=== PATIENT | female | born 2005 | race Caucasian/White ===

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

== ENCOUNTER 2024-07-19 12:59 | Emergency (ER) | payer MEDICAID ==
[~2024-07-19] VITALS: Ht 147.3 cm; Wt 67.5 kg
[2024-07-19 13:00] VITALS: TEMP 100.3
--- NOTE | 2024-07-19 14:45 | Physician Documentation ---
History of Present Illness ~ Chief Complaint: Flu Symptoms Stated Complaint: COUGH/SOB/ASTHMA Time Seen by MD: 14:19 Primary Medical Doctor: Brian still Mode of Arrival: Ambulatory HPI This is a 19-year-old female with a history of Down's syndrome who was status post Cardiothoracic surgery due to congenital anomaly. She also has a history of asthma. Her mother accompanies her, and notes that she has had fevers as high as 103 in the last three days, along with noted hypoxia at home of 84% on room air. Mom notes that she is coughing forcefully to the point where it will make her vomit, and she appears to almost choked on her secretions. Mom has been giving her her usual albuterol and Pulmicort at home. Medication Reconciliation Allergies: Coded Allergies: No Known Allergies (Unverified , 07/19/24) Scheduled Amoxicillin 250MG/5ML Susp* (Amoxicillin 250MG/5ML Susp*), 5 ML PO TID Benzonatate* (Benzonatate*), 1 CAP PO Q8H Dexamethasone* (Decadron*), 1 TAB PO DAILY Guaifenesin (Mucinex), 1 TAB PO Q12H Scheduled PRN Albuterol Sulfate (Ventolin Hfa), 2 PUFFS INH Q4HPRN PRN for wheezing Durable Medical Equipment Wheelchair (Wheelchair), 1 EACH [facility], (DME) Past Medical History Past Medical History: No Pertinent History Past Surgical History: no surgical history Last Menstrual Period: July 18, 2024 Alcohol Use: None Drug Use: none Lives with: Family Lives In: Home Occupation: child Review of Systems ROS As stated above in the HPI, otherwise all systems are reviewed and negative. Physical Exam Vital Signs: Temperature: 100.3, Heart Rate: 69, Respiratory Rate: 16, BP: 129/64, Pulse Oximetry: 97, Weight: 67.500 Physical Exam General: Alert, no apparent distress. HEENT: PERRL, EOMI, no injection, moist mucous membranes. Neck: Full range of motion. Respiratory: Lungs clear, no respiratory distress. Frequent tight cough. Chest: No accessory muscle use. Cardiovascular: Regular rate and rhythm, no murmurs. Tachycardic. Gastrointestinal: Soft, nontender, nondistended. Bowels sounds present. Extremities: Normal range of motion, no deformity. Neurologic: Oriented x4. Psychiatric: Normal mood and affect. Skin: Normal color, warm and dry. No edema, no ecchymosis. Progress Results/Orders Results/Orders Orders - LISA WILKERSONKEV Hanna BUN MACHINE OPERATOR Chest,Single View (07/19/24 14:43) Covid19 Binax Poc Result Entry (07/19/24 14:43) Svn Treatment (07/19/24 14:45) * Iv Access / Saline Lock * (07/19/24 14:56) Completed Orders - LISA WILKERSONKEV Hanna BUN MACHINE OPERATOR Chest,Single View (07/19/24 14:43) Cbc/Diff (07/19/24 14:43) CMP (07/19/24 14:43) Ipratropium/Albuterol Nebule (Ipratrop/A (07/19/24 14:45) Medications Received in ER Medications (Trade) Dose Ordered Sig/Zoraida Route PRN Reason Start Time Stop Time Status Last Admin Dose Admin (ipratrop/ albuterol 0.5-3(2.5) MG/3ml nebule) 3 ml ONCE ONCE NEB 07/19/24 14:45 07/19/24 14:47 DC 07/19/24 15:26 3 ML Vital Signs 07/19/24 07/19/24 07/19/24 07/19/24 13:00 14:21 15:30 15:37 Temp 100.3 Pulse 103 69 115 119 Resp 22 16 24 24 B/P (MAP) 129/64 (85) Pulse Ox 98 97 98 O2 Delivery Room Air* Room Air* O2 Flow Rate 0 0 FiO2 21 21 Laboratory Tests Test 07/19/24 15:20 07/19/24 15:44 SARS-CoV-2 Antigen (Rapid) Negative White Blood Count 12.7 H Red Blood Count 4.24 Hemoglobin 14.0 Hematocrit 41.0 Mean Corpuscular Volume 96.7 Mean Corpuscular Hemoglobin 33.0 H Mean Corpuscular Hemoglobin Concent 34.2 Red Cell Distribution Width 14.4 Platelet Count 197 Mean Platelet Volume 8.0 Neutrophils (%) (Auto) 90.0 H Lymphocytes (%) (Auto) 5.8 L Monocytes (%) (Auto) 4.0 Eosinophils (%) (Auto) 0 Basophils (%) (Auto) 0.2 Neutrophils # (Auto) 11.4 H Lymphocytes # (Auto) 0.7 L Monocytes # (Auto) 0.5 Eosinophils # (Auto) 0.0 Basophils # (Auto) 0.0 CBC Comment Sodium Level 143 Potassium Level 4.1 Chloride Level 109 H Carbon Dioxide Level 22.9 L Anion Gap 11 Blood Urea Nitrogen 16 Creatinine 1.18 H Estimated GFR/1.73 m2 58 BUN/Creatinine Ratio 13.6 Glucose Level 105 H Calcium Level 8.5 Total Bilirubin 0.3 Aspartate Amino Transf (AST/SGOT) 22 Alanine Aminotransferase (ALT/SGPT) 10 L Alkaline Phosphatase 97 Total Protein 7.6 Albumin 3.3 L Globulin 4.3 Albumin/Globulin Ratio 0.8 L Chemistry Comments EKG/XRAY/CT/US/VASC/MRI Chest X-Ray : Additional Comments DIAGNOSTIC RADIOLOGY Patient: JORDAN FISCHER Medical Record: [id number] [facility] : 2005, Age: 19 Sex: Female Location: ER Patient Status: [facility] ER Service Date/Time: 07/19/241442 Ordering Physician: JORY WILKERSON NP Exam: CHEST,SINGLE VIEW CHEST RADIOGRAPH Indication: cough, dyspnea Technique: Single frontal view of the chest was obtained COMPARISON: None FINDINGS: Lines and Tubes: None Lungs: Increased density in the lower lung zones is related to overlying soft tissues. No focal consolidative opacity is seen. Pleura: No effusion. No pneumothorax. Cardiomediastinal contours: Unremarkable Bones: Unremarkable IMPRESSION: 1. Normal frontal view of the chest. Electronically Signed by:SAMMI SCHNEIDER MD Date & Time: 07/19/241516 Dictated by: SAMMI SCHNEIDER MD Dictation date and time: 07/19/241516 Primary Care Provider: NO PRIMARY CARE PROVIDER cc: JORY WILKERSON BUN MACHINE OPERATOR ~ Medical Decision Making Additional Infomation 19-year-old female with a history of asthma presents today with three days of cough, wheezing, fever. Chest x-ray negative for pneumonia. Labs overall unremarkable. Mildly elevated white blood cell count. Negative COVID-19 test. She will be treated for an asthma exacerbation. Discussed course of illness and need to return if worse with her mother, who was comfortable with the plan. Discussed care of symptoms with Tessalon Perles, Mucinex, increase fluids, rest, Ventolin inhaler, and prescribed dexamethasone 4 mg daily x5 days. The mother notes that patient tolerates dexamethasone better with than prednisone. Departure Time of Disposition: 16:27 Disposition: 01 HOME / SELF CARE / HOMELESS Impression: Primary Impression: Viral infection Additional Impression: Asthma exacerbation Condition: Stable Discharge Instructions: Asthma, Adult Additional Instructions: Negative Covid-19 test. Normal chest xray with no pneumonia. labs ok. Take the mucinex and encourage Jordan to drink extra fluids. Use the inhaler every 4-6 hrs as needed for wheezing, or use the nebulizer you have at home. Dexamethasone 4 mg daily x 5 days. Tessalon perles as needed for cough. Referrals: NO PRIMARY CARE PROVIDER (PCP) Prescriptions Benzonatate* (Benzonatate*) 100 Mg Capsule 1 CAP PO Q8H for cough for 10 Days, #30 CAP Prov: JORY WILKERSON NP 07/19/24 Guaifenesin (Mucinex) 600 Mg Tablet.sa 1 TAB PO Q12H for cough for 10 Days, #20 TAB 0 Refills Prov: JORY WILKERSON NP 07/19/24 Dexamethasone* (Decadron*) 4 Mg Tablet 1 TAB PO DAILY for 5 Days, #5 TAB Prov: JORY WILKERSON NP 07/19/24 Albuterol Sulfate (Ventolin Hfa) 90 Mcg Hfa.aer.ad 2 PUFFS INH Q4HPRN PRN for wheezing for 30 Days, #18 GM 0 Refills Prov: JORY WILKERSON NP 07/19/24 Education Educated: Patient, Family Educated regarding: diagnosis, treatment, prognosis, need for follow up Signature Scribe Signature: no scribe Attestation: The note accurately reflects work and decisions made by me.Jory Lazo NP 07/19/24 16:39 JORY WILKERSON NP July 19, 2024 14:45
--- NOTE | 2024-07-19 15:19 | RADIOLOGY REPORT ---
CHEST RADIOGRAPH Indication: cough, dyspnea Technique: Single frontal view of the chest was obtained COMPARISON: None FINDINGS: Lines and Tubes: None Lungs: Increased density in the lower lung zones is related to overlying soft tissues. No focal conso lidative opacity is seen. Pleura: No effusion. No pneumothorax. Cardiomediastinal contours: Unremarkable Bones: Unremarkable IMPRESSION: 1. Normal frontal view of the chest.
[2024-07-19] MEDS: ipratropium/albuterol 3ml nebule NEB ONE (15:26)
[2024-07-19 15:30] VITALS: PULSE 115; RESP 24
[2024-07-19 15:37] VITALS: PULSE 119; RESP 24; O2SAT 98
[2024-07-19 15:57] LABS: BASOPHILS % (AUTO) 0.2 % (0-1); EOSINOPHILS % (AUTO) 0 % (0-6); LYMPHOCYTES # (AUTO) 0.7 X10'3 (1.1-4.8); LYMPHOCYTES % (AUTO) 5.8 % (21-51); MEAN CORPUSCULAR HGB CONC 34.2 g/dL (33.0-36.5); MEAN CORPUSCULAR VOLUME 96.7 FL (78-98); MONOCYTES # (AUTO) 0.5 X10'3 (0-0.9); NEUTROPHILS # (AUTO) 11.4 X10'3 (1.8-7.7); PLATELET COUNT 197 X10'3 (140-440); RED BLOOD COUNT 4.24 X10'6 (4.20-5.60); RED CELL DISTRIBUTION WIDTH 14.4 % (11.5-14.5); WHITE BLOOD COUNT 12.7 X10'3 (4.5-11.0)
[2024-07-19 16:10] LABS: ALANINE AMINOTRANSFERASE 10 U/L (12-78); ALBUMIN 3.3 G/DL (3.4-5.0); ALBUMIN/GLOBULIN RATIO 0.8 (1.1-1.5); ALKALINE PHOSPHATASE 97 IU/L (46-116); ANION GAP 11 (8-16); ASPARTATE AMINO TRANSFERASE 22 U/L (10-37); BILIRUBIN,TOTAL 0.3 MG/DL (0.1-1.0); BLOOD UREA NITROGEN 16 MG/DL (7-18); BUN/CREATININE RATIO 13.6 (10.0-20.0); CALCIUM 8.5 MG/DL (8.5-10.1); CHLORIDE 109 MMOL/L (99-107); CREATININE 1.18 MG/DL (0.40-0.90); GLUCOSE 105 MG/DL (70-104); POTASSIUM 4.1 MMOL/L (3.5-5.1); SODIUM 143 MMOL/L (135-145); TOTAL CARBON DIOXIDE 22.9 MMOL/L (24-32); TOTAL PROTEIN 7.6 G/DL (6.4-8.2); eCRCL 49 ML/MIN; eGFR 58 ML/MIN
[2024-07-19] MEDS ORDERED: DEC4T PO (16:28)
[2024-07-19] MEDS ORDERED: ALBU18HF2 INH (16:28)
[2024-07-19] MEDS ORDERED: BENZ-38 PO (16:28)
[2024-07-19] MEDS ORDERED: GUAI600T45 PO (16:28)
[2024-07-19 16:41] VITALS: BP 124/68; PULSE 75; RESP 20; O2SAT 97
== END 2024-07-19 16:51 | disposition home or self-care (01) ==
LOC: ER 12:59
DX: B34.9 Viral infection, unspecified (principal); J45.901 Unspecified asthma with (acute) exacerbation; Z20.822 Contact with and (suspected) exposure to COVID-19
CPT/HCPCS: 36415; 71045; 80053; 85025; 87811; 94640; 94760; 99284